=== PATIENT | male | born 1970 | race Caucasian/White ===

== ENCOUNTER 2018-05-30 08:43 | Day surgery (SDC) | payer OTHER ==
[~2018-05-30 08:43] MED LIST: ACETAMINOPHEN 1,000 MG/100 ML BTL IV ONE; CEFAZOLIN 2 Gram 2 GM/50 ML BAG IVPB ONE; FAMOTIDINE 20MG TABLET PO ONE; MECLIZINE 25 MG TABLET PO ONE; METOCLOPRAMIDE 10 MG TABLET PO ONE
[2018-05-30] MEDS ORDERED: METHYLPREDNISOLONE 40MG/VIAL IM ONE (08:44)
[2018-05-30] MEDS ORDERED: BUPIVACAINE 0.5% W/EPI MPF 30 ML VIAL IVP ONE (08:44)
[2018-05-30] MEDS ORDERED: EPINEPHRINE 1 MG/ML AMPUL SQ ONE (08:44)
[2018-05-30] MEDS ORDERED: MORPHINE SULFATE PF 10MG/10ML VIAL IV ONE (08:44)
[2018-05-30] MEDS ORDERED: SCOPOLAMINE 1 PATCH TDSY TD ONE (08:44)
--- NOTE | 2018-06-01 17:23 | Operative Note ---
DATE OF SURGERY: 05/30/18 PREOPERATIVE DIAGNOSIS: INTERNAL DERANGEMENT, RIGHT KNEE. POSTOPERATIVE DIAGNOSES: 1. DIFFUSE SYNOVITIS. 2. GRADE 3 CHONDROMALACIA PATELLA. 3. 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 4. SPLIT BUCKET-HANDLE TEAR INVOLVING THE POSTERIOR HORN OF THE MEDIAL MENISCUS. 5. FRINGE TEAR INVOLVING THE LATERAL AND ANTERIOR HORN OF THE LATERAL MENISCUS. PROCEDURE: 1. RIGHT KNEE ARTHROSCOPY WITH PARTIAL MEDIAL AND LATERAL MENISCECTOMIES. 2. RIGHT KNEE ARTHROSCOPY WITH SYNOVECTOMY. 3. RIGHT KNEE ARTHROSCOPY WITH CHONDROPLASTY OF THE PATELLA AND MEDIAL FEMORAL CONDYLE. STAFF SURGEON: CAROL DANIELLE M.D. ANESTHESIA: GENERAL. PREPARATION: CHLORAPREP. INDIVIDUAL CONSIDERATIONS: NONE. PROCEDURE: The patient was taken to the Operating Room and placed supine on the operating table. He had a successful induction of a general anesthetic. His right lower extremity was prepped and draped in the usual fashion. The patient had a lateral portal identified for arthroscopy. The skin was infiltrated with 0.5% Marcaine with Epinephrine prior. The knee was inflated with normal saline. An inferior medial and inferior lateral portal were made in a similar fashion. The arthroscope was introduced through the inferior lateral portal up into the pouch. The patellofemoral compartment showed diffuse synovitis in the pouch at gutters, which was debrided. The patella showed grade 3 changes throughout, which were smoothed but the notch looked good. Medially, grade 3 changes on the medial femoral condyle from 45 to 90 and basically a split bucket-handle tear involving the posterior horn of the medial meniscus, which was basically removed with basket forceps and a shaver. The medial and anterior horns were intact. In the notch, the cruciates were normal. The lateral compartment structures showed a fringe tear involving the anterior and lateral horn of the lateral meniscus, which were debrided but otherwise the remainder of the construction of the compartment were intact. No loose bodies were seen again in either gutter after synovectomy. Portals were closed with dayami and 20 mL of 0.5% Marcaine with Epinephrine along with 4 mg of Morphine and 40 mg DepoMedrol were injected into the knee and a sterile Bulkee compressive dressing was applied. The patient tolerated the procedure well. Needle and sponge counts were correct. Estimated blood loss was minimal. He was taken back to Recovery in good condition. There were no complications. JOB NUMBER: [id number] [facility]
== END 2018-05-30 13:05 | disposition home or self-care (01) ==
LOC: SUR 08:43
PROVIDERS: ATTEND Orthopaedic Surgery
DX: S83.211A Bucket-handle tear of medial meniscus, current injury, right knee, initial encounter (principal); S83.281A Other tear of lateral meniscus, current injury, right knee, initial encounter; M65.88 Other synovitis and tenosynovitis, other site; M22.41 Chondromalacia patellae, right knee
CPT/HCPCS: J0171; J1030